=== PATIENT | female | born 1995 | race Caucasian/White ===

== ENCOUNTER 2021-05-05 07:34 | Day surgery (SDC) | payer MEDICAID, SELFPAY ==
[~2021-05-05] VITALS: Ht 160 cm; Wt 61.2 kg
[2021-05-05] MEDS ORDERED: SIMETHICONE 40 MG/0.6 ML ML ONE (08:15)
[2021-05-05] MEDS ORDERED: MIDAZOLAM HCL 5 MG/5 ML VIAL ONE (08:16)
[2021-05-05] MEDS ORDERED: MEPERIDINE 100 MG INJ. 100 MG/ML VIAL ONE ×2 (08:16→09:32)
[2021-05-05] MEDS ORDERED: fentaNYL CITRATE/PF 100 MCG/2 ML AMP ONE (08:21)
[2021-05-05 08:57] LABS: HCG,QUAL RESULT NEGATIVE (NEGATIVE)
[2021-05-05 10:00] VITALS: BP_SYST 117
[2021-05-05] MEDS ORDERED: DIPHENHYDRAMINE INJ 50 MG/ML VIAL ONE (16:30)
== END 2021-05-05 10:50 | disposition home or self-care (01) ==
LOC: SMU 07:34 → SDS 07:34
PROVIDERS: ATTEND Internal Medicine
DX: K62.5 Hemorrhage of anus and rectum (principal); K64.8 Other hemorrhoids; K59.00 Constipation, unspecified; Z20.822 Contact with and (suspected) exposure to COVID-19; Z79.899 Other long term (current) drug therapy
CPT/HCPCS: 45380; 84703; 88305; 99152; G0378; J1200; J2175; J2250; U0003; 43239; J3010